=== PATIENT | male | born 1980 | race Caucasian/White ===

== ENCOUNTER 2018-09-02 14:27 | Emergency (ER) | payer OTHER ==
[2018-09-02] MEDS ORDERED: Ketorolac 60 MG/2 ML SDV IM ONE (16:17)
[2018-09-02] MEDS ORDERED: Ondansetron 4 MG Tab.DIS PO ONE (16:20)
--- NOTE | 2018-09-02 16:22 | EDM.PDOC ---
ED HPI GENERAL MEDICAL PROBLEM - General Chief Complaint: General Stated Complaint: FALL/HEADACHE Time Seen by Provider: 09/02/18 16:13 Source of Information: Reports: Patient, RN Notes Reviewed History Limitations: Reports: No Limitations - History of Present Illness INITIAL COMMENTS - FREE TEXT/NARRATIVE: 38-year-old gentleman presents emergency department day complaint of shoulder pain and neck pain, he fell this morning while going out of his house he slipped on the concrete steps fell backwards hitting his head neck shoulder area on the right side he is unsure if he had any loss of consciousness he is nauseated he heard a loud crack he is having neck pain and then can only lift his shoulder part way without excruciating pain. He did try to go to work this morning but had difficulty with concentration Right Posterior Head Pain Score (Numeric/FACES): 10 - Related Data Allergies Allergy/AdvReac Type Severity Reaction Status Date / Time No Known Allergies Allergy Verified 09/02/18 15:58 Home Meds: Home Meds Hydrocodone/Acetaminophen [Hydrocodon-Acetaminophen 5-325] 1 each PO TID PRN #6 tablet 09/02/18 [Rx] Past Medical History Cardiovascular History: Reports: High Cholesterol Gastrointestinal History: Reports: GERD Musculoskeletal History: Reports: Fracture Other Musculoskeletal History: Wrist ,finger, elbows, Pins in l foot Neurological History: Reports: Concussion, Head Trauma, Migraines Psychiatric History: Reports: PTSD Endocrine/Metabolic History: Reports: Hypothyroidism, Obesity/BMI 30+ - Infectious Disease History Infectious Disease History: Reports: Chicken Pox, Measles, Mumps - Past Surgical History GI Surgical History: Reports: EGD Social & Family History - Tobacco Use Smoking Status *Q: Current Every Day Smoker Years of Tobacco use: 24 Packs/Tins Daily: 0.5 Used Tobacco, but Quit: No Second Hand Smoke Exposure: No - Caffeine Use Caffeine Use: Reports: Tea - Recreational Drug Use Recreational Drug Use: No ED ROS GENERAL - Review of Systems Review Of Systems: See Below Constitutional: Reports: No Symptoms HEENT: Reports: No Symptoms Respiratory: Reports: No Symptoms Cardiovascular: Reports: Dyspnea on Exertion GI/Abdominal: Reports: Nausea : Reports: No Symptoms Musculoskeletal: Reports: Neck Pain, Shoulder Pain Skin: Reports: No Symptoms Neurological: Reports: Headache ED EXAM, GENERAL - Physical Exam Exam: See Below Free Text/Narrative:: General: Male, moderate distress secondary to pain, alert and oriented x3 HEENT: head is atraumatic normocephalic, eyes pupils equal round reactive to light, sclera clear no conjunctivitis appreciated, extraocular eye movements intact. Ears tympanic membranes clear and lopez landmarks and light reflex are present bilaterally canals are clear. Nose no septal deviation, nares are clear, no blood present. Mouth mucosa is moist and pink no erythema or exudate noted in soft palate, tongue is midline uvula is midline, dentition is intact. Neck: Supple no thyromegaly no tracheal deviation. Nodes: Cervical nodes subclavicular nodes nontender no palpable lymphadenopathy noted. Lungs: clear to auscultation bilaterally with symmetrical respirations, no adventitious noise appreciated. CV: Regular rate and rhythm S1 and S2 appreciated no murmurs rubs or gallops noted. Abdomen: Soft, nontender, no palpable masses or organomegaly appreciated, no distention no guarding bowel sounds are present,. Neuro: Cranial nerves II test with pupillary light reflex 4 mm to 2 mm bilaterally, CN III test pupillary constriction, limited elevation and eye abduction bilaterally, CN IV downward movement of eyes bilaterally, CN V good jaw movement, CN lateral deviation of the eyes bilaterally to finger movement , CN VII symmetrical smile shows teeth without difficulty, CN VIII pass finger rub to ears bilaterally, CN IX adequate voice and tone, CN X adequate voice and tone no difficulty swallowing, CN XI can shrug shoulders without difficulty, CN XII can stick tongue out without difficulty, cranial nerves II to XII intact as tested, Course - Vital Signs Last Recorded V/S: Last Vital Signs Temp 98.0 F 09/02/18 16:05 Pulse 86 09/02/18 17:14 Resp 18 09/02/18 17:14 BP 121/81 09/02/18 17:14 Pulse Ox 99 09/02/18 17:14 - Orders/Labs/Meds Orders: Active Orders 24 hr Category Date Time Status Cervical Spine wo Cont [CT] Stat Exams 09/02/18 16:17 Taken Head wo Cont [CT] Stat Exams 09/02/18 16:17 Ordered Shoulder Comp Rt [CR] Stat Exams 09/02/18 16:17 Taken Meds: Medications Discontinued Medications Generic Name Dose Route Start Last Admin Trade Name Ana PRN Reason Stop Dose Admin Ketorolac Tromethamine 60 mg 09/02/18 16:17 09/02/18 16:45 Toradol IM 09/02/18 16:18 60 mg ONETIME ONE Administration Ondansetron HCl 4 mg 09/02/18 16:20 09/02/18 16:44 Zofran Odt PO 09/02/18 16:21 4 mg ONETIME ONE Administration Departure - Departure Time of Disposition: 17:53 Disposition: Home, Self-Care 01 Condition: Fair Clinical Impression: Whiplash injuries Qualifiers: Encounter type: initial encounter Qualified Code(s): S13.4XXA - Sprain of ligaments of cervical spine, initial encounter Sprain of right shoulder Qualifiers: Encounter type: initial encounter Shoulder sprain type: unspecified sprain Qualified Code(s): S43.401A - Unspecified sprain of right shoulder joint, initial encounter - Discharge Information Referrals: PCP,None [Primary Care Provider] - Forms: ED Department Discharge Additional Instructions: your medications have been faxed to [email or web address], use ibuprofen for baseline pain control use the hydrocodone for breakthrough pain, Please followup with your primary care provider in 3-5 days if not better, please call return to the emergency department with worsening of symptoms. - My Orders Last 24 Hours: My Active Orders 09/02/18 16:17 Cervical Spine wo Cont [CT] Stat Head wo Cont [CT] Stat Shoulder Comp Rt [CR] Stat - Assessment/Plan Last 24 Hours: My Active Orders 09/02/18 16:17 Cervical Spine wo Cont [CT] Stat Head wo Cont [CT] Stat Shoulder Comp Rt [CR] Stat Plan: Assessment Acuity = acute Site and laterality = right shoulder sprain and whiplash injury Etiology = secondary to a fall Manifestations = pain Location of injury = Home Lab values = x-ray shoulder I did review films myself I cannot appreciate any acute process, the official read from radiology is pending, CT scan head and the neck show no acute process Plan I did review CT scan results and x-ray results with him he had good relief from the Toradol plan is discharge home with hydrocodone 5/325 one tab by mouth 3 times a day when necessary total #6 follow-up primary care 3-5 days if no improvement This note was dictated using [email or web address] voice recognition software please call with any questions on syntax or grammar.
--- NOTE | 2018-09-03 10:10 | CR ---
Findings: No fracture or dislocation. Minimal AC joint hypertrophy.
== END 2018-09-02 18:30 | disposition home or self-care (01) ==
LOC: JP.ED 14:27
DX: S13.4XXA Sprain of ligaments of cervical spine, initial encounter (principal); S43.401A Unspecified sprain of right shoulder joint, initial encounter; E78.00 Pure hypercholesterolemia, unspecified; F17.210 Nicotine dependence, cigarettes, uncomplicated; W10.9XXA Fall (on) (from) unspecified stairs and steps, initial encounter
CPT/HCPCS: 70450; 72125; 73030; 96372; 99284; A9270; J1885